=== PATIENT | male | born 1970 | race Caucasian/White ===

== ENCOUNTER → 2017-12-30 | Outpatient (CLI) | payer MEDICAID ==
[2017-12-30 12:53] LABS: CHOLESTEROL/HDL RATIO 5.3
[2017-12-30 12:57] LABS: FREE T4 0.97 ng/dL (0.76-1.46); FREE THYROXINE INDEX 2.3 ug/dL (1.4-4.5); T4(THYROXINE) 6.5 ug/dL (4.7-13.3)
== END | disposition home or self-care (01) ==
LOC: LB 11:20
PROVIDERS: Family Medicine
DX: L81.9 Disorder of pigmentation, unspecified (principal); E04.1 Nontoxic single thyroid nodule; Z83.3 Family history of diabetes mellitus
CPT/HCPCS: 84439